=== PATIENT | female | born 1975 | race Caucasian/White ===

== ENCOUNTER → 2021-09-18 15:41 | Outpatient (CLI) | payer OTHER, SELFPAY ==
--- NOTE | 2021-09-18 | DI.MG.S_ITS ---
BILATERAL DIGITAL SCREENING MAMMOGRAM 3D/2D WITH CAD: 09/18/2021 CLINICAL: Routine screening. Baseline exam. No prior exams were available for comparison. There are scattered fibroglandular elements in both breasts. Current study was also evaluated with a Computer Aided Detection (CAD) system. There is a round asymmetry with an indistinct margin in the right breast posterior depth lateral region seen on the craniocaudal view only. No other significant masses, calcifications, or other findings are seen in either breast. IMPRESSION: INCOMPLETE: NEEDS ADDITIONAL IMAGING EVALUATION The round asymmetry in the right breast most likely is a lymph node and is indeterminate. Additional views with possible ultrasound are recommended. This exam was interpreted at Station ID: [id number]. NOTE: For mammograms, a report in lay terms will be sent to the patient. Approximately 15% of breast malignancies will not be visualized mammographically. In the management of a palpable breast mass, a negative mammogram must not discourage biopsy of a clinically suspicious lesion. Electronically Signed By: Olive smalls/faby:09/18/2021 17:38:44 letter sent: Additional Imaging Needed ACR BI-RADS Category 0: Incomplete 3340F
== END ==
PROVIDERS: Family Provider Family Medicine; PCP Family Medicine; Referring Provider Family Medicine; Visit Provider Family Medicine
DX: Z12.31 Encounter for screening mammogram for malignant neoplasm of breast (principal)
CPT/HCPCS: 77063; 77067

== ENCOUNTER → 2021-10-19 14:18 | Outpatient (CLI) | payer OTHER, SELFPAY ==
--- NOTE | 2021-10-19 | DI.MG.S_ITS ---
UNILATERAL RIGHT DIGITAL DIAGNOSTIC MAMMOGRAM 3D/2D WITH ADDITIONAL VIEWS: 10/19/2021 CLINICAL: Additional evaluation requested from prior study. Comparison is made to exam dated: 09/18/2021 [facility]. There are scattered fibroglandular elements in right breast. With focal spot compression, and additional views, the abnormality seen in the right breast in the lateral aspect on screening mammography resolves. This was consistent with overlapping fibroglandular tissue. No significant masses, calcifications, or other findings are seen in the breast. IMPRESSION: NEGATIVE Resolution of screening mammography abnormality with additional views. There is no mammographic evidence of malignancy. Return to annual mammogram screening schedule is recommended. Findings and recommendations were conveyed to the patient at time of exam. This exam was interpreted at Station ID: [id number]. NOTE: For mammograms, a report in lay terms will be sent to the patient. Approximately 15% of breast malignancies will not be visualized mammographically. In the management of a palpable breast mass, a negative mammogram must not discourage biopsy of a clinically suspicious lesion. Electronically Signed By: Olive smalls/:10/19/2021 15:00:14 letter sent: Normal Exam ACR BI-RADS Category 1: Negative 3341F
== END ==
PROVIDERS: Family Provider Family Medicine; PCP Family Medicine; Referring Provider Family Medicine; Visit Provider Family Medicine
DX: R92.8 Other abnormal and inconclusive findings on diagnostic imaging of breast
CPT/HCPCS: 77065; G0279

== ENCOUNTER → 2024-05-30 12:04 | Outpatient (ROUT) | payer OTHER, SELFPAY ==
[2024-05-30 15:17] LABS: COVID-19 CEPHEID PCR (VTM/NP) Negative (Negative)
== END ==
PROVIDERS: Family Provider Family Medicine; PCP Family Medicine; Visit Provider Internal Medicine
DX: J02.9 Acute pharyngitis, unspecified (principal); R51.9 Headache, unspecified
CPT/HCPCS: 87635

== ENCOUNTER → 2024-08-15 08:50 | Outpatient (CLI) | payer OTHER, SELFPAY ==
--- NOTE | 2024-08-15 08:52 | DI.RAD.S_ITS ---
PROCEDURE: XR RIBS RT MIN 3V W CXR 1V INDICATIONS: RIB PAIN TECHNIQUE: 2 views of the ribs were acquired, along with a single view chest. COMPARISON: None. FINDINGS: Surgical changes and devices: None. Bones and chest wall: No fractures or dislocations. No suspicious bony lesions. Overlying soft tissues appear unremarkable. Lungs and pleura: No pleural effusions or pneumothorax. Lungs appear clear. Mediastinum: Mediastinal contours appear normal. Heart size is normal. IMPRESSION: No acute displaced rib fracture or pneumothorax. Approved by: Clemencia Rene M.D.,Ph.D. on 08/15/2024 at 11:51
== END ==
PROVIDERS: Family Provider Family Medicine; PCP Family Medicine; Referring Provider Family Medicine; Visit Provider Family Medicine
DX: R07.81 Pleurodynia (principal)
CPT/HCPCS: 71101

== ENCOUNTER → 2025-06-24 09:29 | Outpatient (CLI) | payer OTHER, SELFPAY ==
--- NOTE | 2025-06-24 09:31 | DI.MG.S_ITS ---
MM diagnostic mammo BI, US breast RT limited: 06/24/2025 BI-RADS: 3 CLINICAL: 50-year old female for bilateral diagnostic mammogram and right diagnostic breast ultrasound. Tyrer-Cuzick lifetime risk of 6.3%. No personal or first- degree family history of breast cancer. The patient presents for evaluation of a palpable abnormality in the right breast for the past few months. The patient reports that this lump started off as a pimple and is now flat and reddish in color and is no longer raised. PRIOR EXAMS 10/19/2021, 09/18/2021. MAMMOGRAPHY TECHNIQUE: 2D and 3D (tomosynthesis) digital mammographic views obtained, with additional images as needed for full coverage. Current study was also evaluated with a Computer Aided Detection (CAD) system. ULTRASOUND TECHNIQUE Real-time nunez scale and color doppler imaging of the area of clinical interest was performed with image documentation. Right targeted breast ultrasound of the area of clinical interest and the axilla was performed with image documentation. DENSITY B. There are scattered areas of fibroglandular density. MAMMOGRAPHY FINDINGS Right (finding-1): Lower Outer at 7:00, Anterior depth: A skin marker was placed in the area of concern, and no mammographic abnormalities are identified or to account for concern by the patient of skin discoloration/ prior palpable lump. Right (finding-2): Upper Outer Quadrant, Middle depth, measuring 0.6cm: There is a circumscribed, oval, low-density mass present. Left: No suspicious mass, asymmetry, microcalcification, or other abnormality seen. ULTRASOUND FINDINGS Right (finding-2): Upper Outer at 11:00, 7 cm from nipple, measuring 0.6 x 0.3 x 0.6 cm: Correlating with findings on mammogram there is an oval, circumscribed, hypoechoic cyst vs solid mass that is parallel. Doppler shows no vascularity. This could represent a complicated cyst versus a fibroadenoma. Right (finding-1): Lower Outer at 7:00, 4 cm from nipple: Underlying the surface marker, there is no sonographic abnormality to account for concern by the patient of skin discoloration/ prior palpable lump. No suspicious sonographic finding present. Right: Axilla: No abnormal lymph nodes are seen in the axilla. IMPRESSION: Right (CvS): Upper Outer at 11:00, 7 cm from nipple, measuring 0.6 x 0.3 x 0.6 cm * Probably Benign. Left * No evidence of malignancy. RECOMMENDATIONS Right: Upper Outer at 11:00, 7 cm from nipple * Six month followup with diagnostic ultrasound. Right * Clinical follow-up is recommended, and further management of palpable abnormalities or other focal signs or symptoms should be based on the results of clinical evaluation. If palpable abnormality or other concerning symptom persists or progresses, further clinical evaluation should be considered. COMMENTS: Findings and recommendations were conveyed to the patient during today's evaluation. OVERALL ASSESSMENT CATEGORY BI-RADS-3: Probably Benign. ELECTRONICALLY SIGNED: Amy Yepez M.D. on 06/24/2025 at 11:18:47 AM PT Interpreting Station ID: [id number]
== END ==
LOC: MAMMO 09:30
PROVIDERS: Family Provider Family Medicine; PCP Family Medicine; Referring Provider Family Medicine; Visit Provider Family Medicine
DX: R92.8 Other abnormal and inconclusive findings on diagnostic imaging of breast (principal); N63.11 Unspecified lump in the right breast, upper outer quadrant; L98.8 Other specified disorders of the skin and subcutaneous tissue
CPT/HCPCS: 76642; 77066; G0279